=== PATIENT | female | born 1945 | race Caucasian/White ===

== ENCOUNTER → 2017-01-29 | Day surgery (SDC) | payer OTHER ==
--- NOTE | 2017-01-30 16:49 | PATH ---
Cytology Non-Gynecological Report Patient Name: OMAR TABARES [facility] Rec. #: [id number] /Age/Gender: 1945 (Age: 71) / F Account: [id number] Location: RADIOLOGY Taken: 01/29/2017 Received: 01/29/2017 Reported: 01/30/2017 Physicians: Jaimee Parker M.D. Specimen(s) Received THYROID FNA Clinical History Thyroid nodule, Isthmus, 3.02 x 2.92 x 1.20 cm Final Diagnosis THYROID, ISTHMUS, FINE NEEDLE ASPIRATION: SATISFACTORY FOR EVALUATION BETHESDA CLASS II: BENIGN. CYTOLOGIC FINDINGS ARE CONSISTENT WITH A BENIGN FOLLICULAR NODULE. BENIGN FOLLICULAR CELLS AND COLLOID PRESENT. Electronically Signed Maria Del Carmen Méndez M.D. Gross Description Received are eight direct smears, four of which are air-dried and Diff-Quik stained, and four of which are alcohol fixed and Pap stained. Also received is 20 ml of bloody formalin from which one cellblock is prepared.
== END | disposition home or self-care (01) ==
LOC: JRADIR 08:15
PROVIDERS: ATTEND Surgery
PROC: 0G9K3ZX Drainage of Thyroid Gland, Percutaneous Approach, Diagnostic (ICD-10-PCS; principal; 2017-01-29)
PROC: BG43ZZZ Ultrasonography of Parathyroid Glands (ICD-10-PCS; 2017-01-29)
DX: E04.1 Nontoxic single thyroid nodule (principal)
CPT/HCPCS: 76942; 88173; 88305-TC

== ENCOUNTER → 2017-02-06 | Day surgery (SDC) | payer OTHER ==
--- NOTE | 2017-02-07 14:54 | PATH ---
Cytology Non-Gynecological Report Patient Name: OMAR TABARES [facility]. Rec. #: [id number] /Age/Gender: 1945 (Age: 71) / F Account: [id number] Location: RADIOLOGY Taken: 02/06/2017 Received: 02/06/2017 Reported: 02/07/2017 Physicians: Jaimee Parker M.D. Specimen(s) Received RIGHT THYROID FNA Clinical History Right thyroid nodule, 2.42 x 1.35 x 1.68 cm Final Diagnosis THYROID, RIGHT, FINE NEEDLE ASPIRATION: SATISFACTORY FOR EVALUATION. BETHESDA CLASS II: BENIGN CYTOLOGIC FINDINGS ARE CONSISTENT WITH A BENIGN FOLLICULAR NODULE WITH CYSTIC CHANGE. BENIGN FOLLICULAR CELLS, MACROPHAGES, FEW LYMPHOCYTES AND COLLOID PRESENT. Electronically Signed Maria Del Carmen Méndez M.D. Gross Description Received are eight direct smears, four of which are air-dried and Diff-Quik stained, and four of which are alcohol fixed and Pap stained. Also received is 20 ml of bloody formalin from which one cellblock is prepared.
== END | disposition home or self-care (01) ==
LOC: JRADIR 08:07
PROVIDERS: ATTEND Surgery
PROC: 0G9H3ZX Drainage of Right Thyroid Gland Lobe, Percutaneous Approach, Diagnostic (ICD-10-PCS; principal; 2017-02-06)
PROC: BG44ZZZ Ultrasonography of Thyroid Gland (ICD-10-PCS; 2017-02-06)
DX: E04.1 Nontoxic single thyroid nodule (principal)
CPT/HCPCS: 76942; 88173; 88305-TC

== ENCOUNTER 2022-06-11 14:25 | Observation (INO) | payer OTHER ==
[2022-06-11 14:31] VITALS: BMI 35.4
[2022-06-11] MEDS ORDERED: ASPIRIN 81 MG CHEWABLE TABLETS PO ONE (15:45)
[2022-06-11] MEDS ORDERED: ASPIRIN 81 MG CHEWABLE TABLETS ONE (16:03)
[2022-06-11 16:05] LABS: BASO % 0.5 % (0-2.0); EOS % 2.1 % (0-4.5); HEMATOCRIT 38.5 % (32.4-45.2); HEMOGLOBIN 12.6 GM/dL (10.7-15.3); MCH 29.4 pg (25.7-33.7); MCHC 32.7 g/dl (32.0-36.0); MEAN CELL VOLUME 89.8 fl (80-96); MEAN PLT VOLUME 7.8 fl (7.5-11.1); NEUT % 73.4 % (42.8-82.8); PLATELET COUNT 272 10^3/uL (134-434); RBC 4.29 M/mm3 (3.60-5.2); RDW 13.8 % (11.6-15.6); WHITE BLOOD COUNT 9.9 K/mm3 (4.0-10.0)
[2022-06-11 16:15] LABS: INR 1.17 (0.83-1.09); PROTHROMBIN TIME (PATIENT) 13.5 SEC (9.7-13.0)
[2022-06-11 16:17] LABS: ACTIVATED PTT 33.9 SECONDS (25.2-36.5)
[2022-06-11 16:25] LABS: BLOOD UREA NITROGEN 26.7 mg/dL (7-18); CALCIUM 9.8 mg/dL (8.5-10.1)
[2022-06-11 16:26] LABS: ALBUMIN 3.8 g/dl (3.4-5.0)
[2022-06-11 16:28] LABS: CREATININE 0.7 mg/dL (0.55-1.3)
[2022-06-11 16:30] LABS: BILIRUBIN,TOTAL 0.6 mg/dL (0.2-1); TOT PROT 7.4 g/dl (6.4-8.2)
[2022-06-11 16:33] LABS: N-TERMINAL BNP 155.2 pg/ml (5-450)
[2022-06-11] MEDS ORDERED: CARVEDILOL 6.25 MG TABLET (FP) ONE (23:09)
[2022-06-11] MEDS: CARVEDILOL 6.25 MG TABLET (FP) PO SCH (23:14)
[2022-06-12 06:42] LABS: BASO % 0.6 % (0-2.0); EOS % 2.7 % (0-4.5); HEMATOCRIT 34.5 % (32.4-45.2); HEMOGLOBIN 11.5 GM/dL (10.7-15.3); LYMPH % 32.6 % (8-40); MCH 30.5 pg (25.7-33.7); MCHC 33.3 g/dl (32.0-36.0); MEAN CELL VOLUME 91.8 fl (80-96); MEAN PLT VOLUME 8.5 fl (7.5-11.1); NEUT % 56.1 % (42.8-82.8); PLATELET COUNT 247 10^3/uL (134-434); RBC 3.76 M/mm3 (3.60-5.2); RDW 13.7 % (11.6-15.6); WHITE BLOOD COUNT 9.3 K/mm3 (4.0-10.0)
[2022-06-12 07:06] LABS: ALBUMIN 3.4 g/dl (3.4-5.0); CALCIUM 8.6 mg/dL (8.5-10.1)
[2022-06-12 07:07] LABS: BLOOD UREA NITROGEN 24.6 mg/dL (7-18); MAGNESIUM 2.1 mg/dL (1.8-2.4)
[2022-06-12 07:11] LABS: CREATININE 0.6 mg/dL (0.55-1.3)
[2022-06-12 07:14] LABS: BILIRUBIN,TOTAL 0.7 mg/dL (0.2-1); TOT PROT 6.4 g/dl (6.4-8.2)
[2022-06-12] MEDS ORDERED: ASPIRIN 81 MG CHEWABLE TABLETS ONE (09:08)
[2022-06-12] MEDS ORDERED: FOLIC ACID 1 MG TABLET (FP) ONE (09:08)
[2022-06-12] MEDS ORDERED: CARVEDILOL 6.25 MG TABLET (FP) ONE (09:08)
[2022-06-12] MEDS ORDERED: LOSARTAN POTASSIUM 50 MG TABLET ONE (09:08)
[2022-06-12] MEDS: CARVEDILOL 6.25 MG TABLET (FP) PO SCH (09:23)
[2022-06-12] MEDS ORDERED: LOSARTAN POTASSIUM 50 MG TABLET PO SCH (10:00)
[2022-06-12] MEDS ORDERED: CALCIUM 500MG/VIT-D 200 UNITS COMBO TABLET (FP) PO SCH (10:00)
[2022-06-12] MEDS ORDERED: ASPIRIN 81 MG CHEWABLE TABLETS PO SCH (10:00)
[2022-06-12] MEDS ORDERED: FOLIC ACID 1 MG TABLET (FP) PO SCH (10:00)
[2022-06-12 17:00] VITALS: TEMP 97.9
[2022-06-12 17:47] VITALS: BP 136/64; PULSE 69; RESP 18
[2022-06-13] MEDS ORDERED: HYDROCHLOROTHIAZIDE 12.5 MG CAPSULE (FP) PO SCH (10:00)
== END 2022-06-12 18:04 | disposition home or self-care (01) ==
LOC: JER 14:25 → JERBED 16:25
PROVIDERS: ADMIT Internal Medicine; ATTEND Internal Medicine
DX: I42.9 Cardiomyopathy, unspecified (principal); R06.09 Other forms of dyspnea; I10 Essential (primary) hypertension; R07.2 Precordial pain; E66.01 Morbid (severe) obesity due to excess calories; Z68.35 Body mass index [BMI] 35.0-35.9, adult
CPT/HCPCS: 0241U-QW; 36415; 71045-TC-FY; 80053; 80061; 83735; 83880; 84443; 84484; 85025; 85610; 85730; 93005; 93010; 93306-TC; 99285-25; G0378